=== PATIENT | female | born 1995 | race Two or more races ===

== ENCOUNTER 2017-01-08 14:34 | Emergency (ER) | payer SELFPAY ==
[~2017-01-08 14:34] MED LIST: NITR100C62 PO
[2017-01-08 15:28] LABS: BILIRUBIN,URINE NEGATIVE (NEG); GLUCOSE,URINE NEGATIVE (NEG); NITRITE,URINE NEGATIVE (NEG); PH,URINE 7.5; PROTEIN,URINE NEGATIVE (NEG-TRACE); UROBILINOGEN,URINE 0.2 mg/dL (0.2 mg/dL)
[2017-01-08 15:41] LABS: BACTERIA,URINE 0 /HPF (0-FEW); RBC,URINE 0 /HPF (0-2); SQUAMOUS EPITHELIAL CELL,UR MOD /LPF; WBC,URINE 20-40 /HPF (0-4); YEAST,URINE PRESENT /HPF
--- NOTE | 2017-01-08 15:59 | PHYS DOC ---
Past Medical History Past Medical History: No Pertinent History Past Surgical History: No Surgical History Alcohol Use: None Drug Use: None Adult General Chief Complaint Chief Complaint: PAIN ON URINATION HPI HPI Patient is a 21 year old female who presents with pelvic pain and setting of . Patient says for the past few days she has had vaginal pain and itching. This is accompanied by dysuria and vaginal discharge. No bleeding. She says she is about 3 months based on her LMP. She is with no problems during first . She has not taken anything for symptoms. She has not yet seen an APPRENTICE/LINEMAN for this . Market Research Manager phone used to obtain history. Review of Systems Review of Systems Constitutional: Denies fever or chills Eyes: Denies change in visual acuity or eye pain HENT: Denies nasal congestion or sore throat Respiratory: Denies cough or shortness of breath Cardiovascular: Denies chest pain GI: Denies abdominal pain, nausea, vomiting, bloody stools or diarrhea : Vaginal pain, itching, discharge, dysuria. Denies vaginal bleeding Musculoskeletal: Denies back pain or joint pain Integument: Denies rash or skin lesions Neurologic: Denies headache, focal weakness or sensory changes Current Medications Current Medications Current Medications Medications (Trade) Dose Ordered Sig/Aishwarya Start Time Stop Time Status Last Admin Dose Admin Acetaminophen (Tylenol) 1,000 mg 1X ONCE 01/08/17 16:15 01/08/17 16:16 DC Nitrofurantoin Macrocrystals (Macrobid) 100 mg 1X ONCE 01/08/17 17:30 01/08/17 17:33 DC 01/08/17 17:40 100 MG Allergies Allergies Allergies Coded Allergies Type Severity Reaction Last Updated Verified No Known Drug Allergies 09/27/16 No Physical Exam Physical Exam Constitutional: Well developed, well nourished, no acute distress, non-toxic appearance HENT: Normocephalic, atraumatic, bilateral external ears normal Eyes: EOMI, conjunctiva normal, no discharge Neck: Normal range of motion, no stridor Cardiovascular: Heart rate normal, regular rhythm, no murmur Lungs & Thorax: Bilateral breath sounds clear to auscultation Abdomen: Bowel sounds normal, soft, non-distended, suprapubic TTP without guarding or rebound Pelvic: Thick white discharge in vault, no bleeding, no CMT or adnexal tenderness Skin: Warm, dry, no erythema, no rash Extremities: No obvious deformity, no edema Neurologic: Alert and oriented X 3, no gross deficits noted Current Patient Data Vital Signs Vital Signs Date Time Temp Pulse Resp B/P Pulse Ox O2 Delivery O2 Flow Rate FiO2 01/08/17 16:19 68 100/54 100 Room Air 01/08/17 14:49 98.1 18 98.1 Lab Values Laboratory Tests Test 01/08/17 14:50 01/08/17 15:01 01/08/17 15:55 Urine Collection Type Unknown Urine Color Yellow Urine Clarity Clear Urine pH 7.5 Urine Specific [place] <=1.005 Urine Protein Negativemg/dL (NEG-TRACE) Urine Glucose (UA) Negativemg/dL (NEG) Urine Ketones (Stick) Negativemg/dL (NEG) Urine Blood Negative (NEG) Urine Nitrite Negative (NEG) Urine Bilirubin Negative (NEG) Urine Urobilinogen Dipstick 0.2mg/dL (0.2 mg/dL) Urine Leukocyte Esterase Large (NEG) Urine RBC 0/HPF (0-2) Urine WBC 20-40/HPF (0-4) Urine Squamous Epithelial Cells Mod/LPF Urine Bacteria 0/HPF (0-FEW) Urine Yeast Present/HPF POC Urine HCG, Qualitative Hcg positive (Negative) Maternal Serum HCG Beta Subunit 39975qVQ/mL (0-6) H Microbiology 01/08/17 Wet Prep - Final, Complete EKG EKG [] Radiology/Procedures Radiology/Procedures Pelvic US: IMPRESSION: Single viable intrauterine fetus of 15 weeks gestational age as described above. Course & Med Decision Making Course & Med Decision Making Pertinent Labs and Imaging studies reviewed. (See chart for details) Patient is 21-year-old female who presents with pelvic pain and vaginal discharge in the setting of . Pelvic exam performed, swabs sent to lab. Ultrasound ordered. Dose of acetaminophen ordered for pain control. Imaging results as above. UA indicative of UTI. Pelvic swabs notable for yeast. Discussed results with patient via co founder & ceo phone. Dose of Macrobid ordered in ED. Will discharge home with prescription for same, prescription for vitamins and topical treatment for yeast infection. Given instructions for follow-up with APPRENTICE/LINEMAN and return precautions. Dragon Disclaimer Dragon Disclaimer This electronic medical record was generated, in whole or in part, using a voice recognition dictation system. Departure Departure Impression: Primary Impression: UTI (urinary tract infection) during Additional Impression: Candidal vulvovaginitis Disposition: 01 HOME, SELF-CARE Condition: STABLE Referrals: NO PCP (PCP) UTE ODEN MD Patient Instructions: Candidal Vulvovaginitis, [id number], - Urinary Tract Infection Additional Instructions: Thank you for allowing us to provide care today in the Emergency Department. Take the provided medication as directed. Schedule a follow up appointment with an APPRENTICE/LINEMAN using the provided contact information. Return promptly to the Emergency Department if you develop any new or concerning symptoms. Scripts Pnv Cmb#95/Ferrous Fumarate/Fa ( Tablet)1 Each Tablet1 Tab PO DAILY #30 TAB Ref 0 Prov:JOSH HASSAN MD 01/08/17 Nitrofurantoin Monohyd/M-Cryst (Macrobid 100 Mg Capsule)100 Mg Capsule1 Cap PO BID #10 CAP Prov:JOSH HASSAN MD 01/08/17 Clotrimazole 15 Gm Cream..g.15 Gm TP DAILY #1 TUBE Prov:JOSH HASSAN MD 01/08/17 Problem Qualifiers JOSH HASSAN MD Jan 08, 2017 15:59
[2017-01-08] MEDS ORDERED: ACETAMINOPHEN 500 MG TABLET PO ONE (16:15)
[2017-01-08 16:19] VITALS: BP 100/54
--- NOTE | 2017-01-08 16:30 | RAD ---
Obstetrical ultrasound, 01/08/2017: History: Pelvic pain Transabdominal scans were obtained. The uterus contains a single fetus in a variable orientation. The biparietal diameter measures 3.1 cm compatible with a gestational age of 15-16 weeks. This corresponds well with the other measurements and yields an average gestational age of 15 weeks and 0 days and a sonographic EDC of 07/02/2017. This correlates well with the EDC of 07/05/2017 established on the original ultrasound exam of 11/07/2016. Normal activity and heart motion are seen. No specific abnormality is detected. The placenta lies anteriorly. There is no evidence of periplacental hemorrhage. A normal amount of amniotic fluid is evident. The cervical length is approximately 5 cm. IMPRESSION: Single viable intrauterine fetus of 15 weeks gestational age as described above.
[2017-01-08] MEDS ORDERED: NITROFURANTOIN MONOHYD/M-CRYST 100 MG CAPSULE. PO ONE (17:30)
[2017-01-08] MEDS ORDERED: CLOT15CR4 TP (17:45)
[2017-01-08] MEDS ORDERED: NITR100C62 PO (17:45)
[2017-01-08] MEDS ORDERED: PNV1TABL25 PO (17:45)
== END 2017-01-08 17:52 | disposition home or self-care (01) ==
LOC: ER 14:34
DX: O23.42 Unspecified infection of urinary tract in pregnancy, second trimester (principal); O23.592 Infection of other part of genital tract in pregnancy, second trimester; B37.3 Candidiasis of vulva and vagina; Z3A.15 15 weeks gestation of pregnancy
CPT/HCPCS: 36415; 76805; 81001; 81025; 84702; 87086; 87491; 87591; 99285; Q0111

== ENCOUNTER 2017-07-13 17:21 | Emergency (ER) | payer SELFPAY ==
[~2017-07-13] VITALS: Ht 152.4 cm; Wt 49.9 kg
[~2017-07-13 17:21] MED LIST changes: +CLOT15CR4 TP; +PNV1TABL25 PO
--- NOTE | 2017-07-13 17:58 | PHYS DOC ---
Past Medical History Past Medical History: No Pertinent History Past Surgical History: No Surgical History Alcohol Use: None Drug Use: None Adult General Chief Complaint Chief Complaint: SKIN RASH/ABSCESS HPI HPI Patient is a 22 year old female who presents with throat swelling in rash on body. He states that she feels like she is having a hard time breathing and swallowing secondary to her symptoms of her throat. She states it started this morning. She denies any new medications other than naproxen that she's been taking since the of her baby on July 03, 2017. She denies any new detergents. She states she's never had a rash before. She also complains about bilateral ear pressure with a buzzing sound for the last several days. She denies any nausea vomiting abdominal pain. Review of Systems Review of Systems Constitutional: Denies fever or chills [] Eyes: Denies change in visual acuity, redness, or eye pain [] HENT: Denies nasal congestion or sore throat [] Respiratory: Denies cough or shortness of breath [] Cardiovascular: No additional information not addressed in HPI [] GI: Denies abdominal pain, nausea, vomiting, bloody stools or diarrhea [] : Denies dysuria or hematuria [] Musculoskeletal: Denies back pain or joint pain [] Integument: Positive for skin rash Neurologic: Denies headache, focal weakness or sensory changes [] Endocrine: Denies polyuria or polydipsia [] Current Medications Current Medications Current Medications Medications (Trade) Dose Ordered Sig/Aishwarya Start Time Stop Time Status Last Admin Dose Admin Diphenhydramine HCl (Benadryl) 25 mg 1X ONCE 07/13/17 18:30 07/13/17 18:31 DC 07/13/17 19:22 25 MG Epinephrine HCl (Adrenalin) 0.3 mg 1X ONCE 07/13/17 18:30 07/13/17 18:31 DC 07/13/17 19:20 0.3 MG Famotidine (Pepcid) 20 mg 1X ONCE 07/13/17 18:30 07/13/17 18:31 DC 07/13/17 19:22 20 MG Methylprednisolone Sodium Succinate (SOLU-Medrol 125MG VIAL) 125 mg 1X ONCE 07/13/17 18:30 07/13/17 18:31 DC 07/13/17 19:21 125 MG Sodium Chloride 1,000 ml @ 1,000 mls/hr Q1H 07/13/17 18:30 07/13/17 19:29 DC 07/13/17 19:22 1,000 MLS/HR Allergies Allergies Allergies Coded Allergies Type Severity Reaction Last Updated Verified No Known Drug Allergies 09/27/16 No Physical Exam Physical Exam Constitutional: Well developed, well nourished, no acute distress, non-toxic appearance. [] HENT: Normocephalic, atraumatic, bilateral external ears normal, oropharynx moist, no oral exudates, nose normal. Right TM erythematous Eyes: PERRLA, EOMI, conjunctiva normal, no discharge. [] Neck: Normal range of motion, no tenderness, supple, no stridor. [] Cardiovascular:Heart rate regular rhythm, no murmur [] Lungs & Thorax: Bilateral breath sounds clear to auscultation [] Abdomen: Bowel sounds normal, soft, no tenderness, no masses, no pulsatile masses. [] Skin: Warm, dry, no erythema, urticarial type rash over arms chest back and legs Back: No tenderness, no CVA tenderness. [] Extremities: No tenderness, no cyanosis, no clubbing, ROM intact, no edema. [] Neurologic: Alert and oriented X 3, normal motor function, normal sensory function, no focal deficits noted. [] Psychologic: Affect normal, judgement normal, mood normal. [] Current Patient Data Vital Signs Vital Signs Date Time Temp Pulse Resp B/P (MAP) Pulse Ox O2 Delivery O2 Flow Rate FiO2 07/13/17 20:03 82 18 115/56 (75) 96 Room Air 07/13/17 17:57 98.1 98.1 EKG EKG [] Radiology/Procedures Radiology/Procedures [] Impressions: Hives Otitis media Course & Med Decision Making Course & Med Decision Making Pertinent Labs and Imaging studies reviewed. (See chart for details) Strep throat was negative. She was seen for hives and complain about throat itching. She received IM epi, Solu-Medrol and Benadryl and her hives had disappeared. She is watched for close to 2 hours she feels better now and her rash is gone. She's being discharged home. She needs to continue prednisone for the next 5 days and Pepcid AC addition to Benadryl. Return precautions given. She also has otitis of the right ear is being discharged on amoxicillin. Dragon Disclaimer Dragon Disclaimer This electronic medical record was generated, in whole or in part, using a voice recognition dictation system. Departure Departure Impression: Primary Impression: Allergic reaction Disposition: HOME, SELF-CARE Condition: STABLE Referrals: NO PCP (PCP) Patient Instructions: Hives, [id number] Additional Instructions: You were seen today for your hives and you received a shot of epinephrine to help take the symptoms away. Your being discharged home with prednisone. Please take it as instructed. You will also need to take Pepcid AC in addition to Benadryl. You will need take these for the next 5 days. If you have troubles breathing, swallowing, or other concerns please return back to emergency department. for your ear infection you can take amoxicillin 500 mg twice a day for the next 10 days. If your ears are hurting worse, you develop high fevers or other concerns please return back to the ER Scripts Amoxicillin (AMOXICILLIN) 500 Mg Capsule 1 CAP PO BID, #20 CAP Prov: DANDRE SANDS MD 07/13/17 Prednisone (PREDNISONE) 50 Mg Tablet 1 TAB PO DAILY, #5 TAB Prov: DANDRE SANDS MD 07/13/17 Problem Qualifiers Primary Impression: Allergic reaction Encounter type: initial encounter Qualified Codes: T78.40XA - Allergy, unspecified, initial encounter DANDRE SANDS MD Jul 13, 2017 17:58
[2017-07-13] MEDS ORDERED: diphenhydrAMINE 50 MG/ML VIAL IV ONE (18:30)
[2017-07-13] MEDS ORDERED: EPINEPHrine 1 MG/ML VIAL IM ONE (18:30)
[2017-07-13] MEDS ORDERED: IV NORMAL SALINE 1000ML BAG 1,000 ML IV SCH (18:30)
[2017-07-13] MEDS ORDERED: methylPREDNISolone SOD SUCC PF 125 MG/2 ML VIAL. IV ONE (18:30)
[2017-07-13] MEDS ORDERED: FAMOTIDINE 20 MG/2 ML VIAL IVP ONE (18:30)
[2017-07-13 21:33] VITALS: BP 93/55
[2017-07-13] MEDS ORDERED: PRED50TA PO (21:36)
[2017-07-13] MEDS ORDERED: AMOX500C PO (21:37)
[2017-07-14 06:07] LABS: NEGATIVE OBC STREP NEG; POSITIVE OBC STREP POS
--- NOTE | 2017-07-14 11:18 | EKG ---
[facility] [address] [place] [address] Test Date: 2017-07-13 Test Time: 18:58:35 Pat Name: BARON CARVALHO Department: Room: Gender: F Digital Asset Specialist: : 1995 Requested By: DANDRE SANDS Order Number: [id number] Reading MD: Lakisha Ricketts Measurements Intervals [place] Rate: 75 P: 43 ND: 134 QRS: 118 QRSD: 80 T: 36 QT: 372 QTc: 418 Interpretive Statements SINUS RHYTHM NORMAL EKG Electronically Signed On 07-18-2017 8:56:59 CDT by Lakisha Ricketts
[2017-07-14] MEDS ORDERED: TRIA15OI TP (18:23)
[2017-07-14] MEDS ORDERED: CETI10TA22 PO (18:23)
[2017-07-14] MEDS ORDERED: FAMO20TA5 PO (18:23)
== END 2017-07-13 21:58 | disposition home or self-care (01) ==
LOC: ER 17:21
DX: T78.40XA Allergy, unspecified, initial encounter (principal); H66.91 Otitis media, unspecified, right ear; X58.XXXA Exposure to other specified factors, initial encounter
CPT/HCPCS: 87070; 87880; 93005; 96361; 96372; 96374; 96375; 99285; J0171; J1200; J2930; J7030; S0028; 99284-25

== ENCOUNTER 2017-07-14 17:34 | Emergency (ER) | payer SELFPAY ==
[~2017-07-14] VITALS: Ht 154.9 cm; Wt 54.4 kg
[~2017-07-14 17:34] MED LIST changes: +AMOX500C PO; +PRED50TA PO
[2017-07-14 17:45] VITALS: BP 117/56
[2017-07-14] MEDS ORDERED: TRIAMCINOLONE ACETONIDE 0.1% TOPICAL CREAM 15GM TUBE. TP STA (18:07)
[2017-07-14] MEDS ORDERED: diphenhydrAMINE HCL 25 MG CAPSULE PO ONE (18:15)
[2017-07-14] MEDS ORDERED: predniSONE 20 MG TABLET PO ONE (18:15)
[2017-07-14] MEDS ORDERED: FAMOTIDINE 20 MG TABLET. PO ONE (18:15)
[2017-07-14] MEDS ORDERED: CETI10TA22 PO (18:23)
[2017-07-14] MEDS ORDERED: TRIA15OI TP (18:23)
[2017-07-14] MEDS ORDERED: FAMO20TA5 PO (18:23)
--- NOTE | 2017-07-14 18:23 | PHYS DOC ---
Past Medical History Past Medical History: No Pertinent History Past Surgical History: No Surgical History Alcohol Use: None Drug Use: None Adult General Chief Complaint Chief Complaint: ALLERGIES HPI HPI Patient is a 22 year old female who presents with a rash that began yesterday. Patient states she was seen in the ED and was given prescription for amoxicillin and prednisone. Patient states she filled one of the prescriptions, she states she does not know which one. Patient denies any known cause for this rash. Denies any trouble breathing. Denies any throat or tongue swelling. Historian was patient using single fold machine operator line for [place] Review of Systems Review of Systems Constitutional: Denies fever or chills [] Eyes: Denies change in visual acuity, redness, or eye pain [] HENT: Denies nasal congestion or sore throat [] Respiratory: Denies cough or shortness of breath [] Cardiovascular: No additional information not addressed in HPI [] GI: Denies abdominal pain, nausea, vomiting, bloody stools or diarrhea [] : Denies dysuria or hematuria [] Musculoskeletal: Denies back pain or joint pain [] Integument: rash Neurologic: Denies headache, focal weakness or sensory changes [] Endocrine: Denies polyuria or polydipsia [] Current Medications Current Medications Current Medications Medications (Trade) Dose Ordered Sig/Aishwarya Start Time Stop Time Status Last Admin Dose Admin Diphenhydramine HCl (Benadryl) 25 mg 1X ONCE 07/14/17 18:15 07/14/17 18:16 DC Famotidine (Pepcid) 20 mg 1X ONCE 07/14/17 18:15 07/14/17 18:16 DC Prednisone (Prednisone) 60 mg 1X ONCE 07/14/17 18:15 07/14/17 18:16 DC Triamcinolone Acetonide (Kenalog) 1 edil 1X STAT 07/14/17 18:07 07/14/17 18:09 DC Allergies Allergies Allergies Coded Allergies Type Severity Reaction Last Updated Verified No Known Drug Allergies 09/27/16 No Physical Exam Physical Exam Constitutional: Well developed, well nourished, no acute distress, non-toxic appearance. [] HENT: Normocephalic, atraumatic, bilateral external ears normal, oropharynx moist, no oral exudates, nose normal. [] Eyes: PERRLA, EOMI, conjunctiva normal, no discharge. [] Neck: Normal range of motion, no tenderness, supple, no stridor. [] Cardiovascular:Heart rate regular rhythm, no murmur [] Lungs & Thorax: Bilateral breath sounds clear to auscultation [] Abdomen: Bowel sounds normal, soft, no tenderness, no masses, no pulsatile masses. [] Skin: Small amount of Urticaria rash noted on patient's right wrist, chest and lower extremities. Back: No tenderness, no CVA tenderness. [] Extremities: No tenderness, no cyanosis, no clubbing, ROM intact, no edema. [] Neurologic: Alert and oriented X 3, normal motor function, normal sensory function, no focal deficits noted. [] Psychologic: Affect normal, judgement normal, mood normal. [] Current Patient Data Vital Signs Vital Signs Date Time Temp Pulse Resp B/P (MAP) Pulse Ox O2 Delivery O2 Flow Rate FiO2 07/14/17 17:45 98.0 101 16 98 Room Air 98.0 EKG EKG [] Radiology/Procedures Radiology/Procedures [] Course & Med Decision Making Course & Med Decision Making Pertinent Labs and Imaging studies reviewed. (See chart for details) Patient is in the ED with contact dermatitis rash from unknown cause since yesterday. She was in the ED yesterday and was discharged with prednisone and amoxicillin. She filled one of this prescription but does not know which one. Talked to patient using the single fold machine operator line. Encouraged her to take the medications she was given yesterday as prescribed. Discharge her with triamcinolone cream, famotidine and Zyrtec. Provided a screenplay writer for follow- up in 1-2 weeks. Provided return precautions discharged in stable condition. Dragon Disclaimer Dragon Disclaimer This electronic medical record was generated, in whole or in part, using a voice recognition dictation system. Departure Departure Impression: Primary Impression: Contact dermatitis Disposition: 01 HOME, SELF-CARE Condition: STABLE Referrals: NO PCP (PCP) HUMBERTO LYNN MD follow up in one week Patient Instructions: Contact Dermatitis Additional Instructions: You were seen with contact dermatitis rash from unknown cause. Please continue taking all the medications you received from the emergency room yesterday. Make sure you fill both prescriptions and take the medications. Take the new medications we provide you today as well. Follow-up with the provided screenplay writer in the next 1-2 weeks. Scripts Famotidine (FAMOTIDINE) 20 Mg Tablet 20 MG PO DAILY, #14 TAB Prov: CHANO STONE APRN 07/14/17 Cetirizine Hcl (ZYRTEC) 10 Mg Tablet 1 TAB PO DAILY, #30 TAB 3 Refills Prov: CHANO STONE APRN 07/14/17 Triamcinolone Acetonide (TRIAMCINOLONE ACETONIDE 0.1% OINT) 15 Gm Oint...g. 1 EDIL TP BID for WOUND CARE, #1 TUBE Prov: CHANO STONE APRN 07/14/17 Problem Qualifiers Primary Impression: Contact dermatitis Contact dermatitis type: unspecified Contact dermatitis trigger: unspecified trigger Qualified Codes: L25.9 - Unspecified contact dermatitis, unspecified cause CHANO STONE APRN Jul 14, 2017 18:23
== END 2017-07-14 18:32 | disposition home or self-care (01) ==
LOC: ER 17:34
DX: L25.9 Unspecified contact dermatitis, unspecified cause (principal)
CPT/HCPCS: 99284; J7512; Q0163

== ENCOUNTER 2018-05-11 17:08 | Emergency (ER) | payer SELFPAY | END 2018-05-11 18:14 | disposition home or self-care (01) | LOC: ER 17:08 | DX: L25.9 Unspecified contact dermatitis, unspecified cause (principal) | CPT/HCPCS: 99283 ==